=== PATIENT | female | born 1930 | race Caucasian/White ===

== ENCOUNTER 2019-11-25 18:43 | Observation (INO) ==
[2019-11-25 19:40] LABS: ABS Basophils 0.1 10^3/ul (0-0.2); ABS Eosinophils 0.1 10^3/ul (0-0.6); ABS Lymphocytes 1.1 10^3/ul (1.0-4.8); ABS Monocytes 1.1 10^3/ul (0-0.8); ABS Neutrophils 9.9 10^3/ul (1.5-7.7); Eosinophil % 0.8 %; Hematocrit 44 % (35-47); Hemoglobin 14.9 g/dL (12.0-16.0); Lymphocyte % 8.8 %; Mean Corpuscular HGB Conc 34 g/dL (31-36); Mean Corpuscular Hemoglobin 31 pg (27-31); Mean Corpuscular Volume 91 fL (80-97); Mean Platelet Volume 10.2 fL (7.4-10.4); Platelet Count 143 10^3/uL (150-450); Red Blood Count 4.86 10^6 /uL (3.70-4.87); Red Cell Distribution Width 14 % (10-15); White Blood Count 12.3 10^3/uL (3.5-10.8)
[2019-11-25 19:58] LABS: Albumin 4.3 g/dL (3.2-5.2); Albumin/Globulin Ratio 1.7 (1-3); BUN/Creatinine Ratio 14.2 (8-20); Calcium 9.6 mg/dL (8.6-10.3); EGFR African American 38.3 (>60); EGFR Non-African American 31.6 (>60); Globulin 2.6 g/dL (2-4); Magnesium 2.3 mg/dL (1.9-2.7); Potassium 4.2 mmol/L (3.5-5.0); Total Bilirubin 0.5 mg/dL (0.2-1.0); Total Protein 6.9 g/dL (6.4-8.9)
[2019-11-25] MEDS ORDERED: NS 0.9% 1000 ml BAG 2,040 ML IV ONE (21:00)
[2019-11-25] MEDS: Heparin 5000 UNITS/ML 1 mL VIAL SUBCUT SCH (23:17)
[2019-11-26 01:35] LABS: Urine Appearance Clear; Urine Bilirubin Negative (Negative); Urine Blood Negative (Negative); Urine Color Colorless; Urine Glucose Negative (Negative); Urine Ketones Negative (Negative); Urine Nitrite Negative (Negative); Urine Protein Negative (Negative); Urine Specific Gravity 1.003 (1.010-1.030); Urine Urobilinogen Negative (Negative)
[2019-11-26 05:43] LABS: Calcium 8.9 mg/dL (8.6-10.3); Potassium 3.8 mmol/L (3.5-5.0)
[2019-11-26 05:49] LABS: BUN/Creatinine Ratio 16.3 (8-20); EGFR Non-African American 53.7 (>60)
[2019-11-26] MEDS: Heparin 5000 UNITS/ML 1 mL VIAL SUBCUT SCH ×2 (06:05→13:14)
[2019-11-26] MEDS ORDERED: GALANTAMINE HBR 8 MG PO SCH (09:00)
[2019-11-26] MEDS ORDERED: CMC: Pravastatin 20 mg TAB (NF) PO SCH (09:00)
[2019-11-26 10:10] LABS: C Reactive Protein 23.73 mg/L (<8.01)
[2019-11-26 12:05] VITALS: BP 130/54
== END 2019-11-26 15:50 | disposition home or self-care (01) ==
LOC: MEDTELE 18:43 → ED 18:43 → MEDTELE 23:08
PROVIDERS: ADMIT Hospitalist; ATTEND Internal Medicine

== ENCOUNTER 2021-01-26 15:55 | Observation (INO) ==
[2021-01-26] MEDS ORDERED: Lactated Ringers 1000 ml BAG 1,000 ML IV ONE (17:15)
[2021-01-26 18:15] LABS: ABS Basophils 0.1 10^3/ul (0-0.2); ABS Eosinophils 0.1 10^3/ul (0-0.6); ABS Lymphocytes 1.3 10^3/ul (1.0-4.8); ABS Monocytes 0.8 10^3/ul (0-0.8); ABS Neutrophils 5.2 10^3/ul (1.5-7.7); Hematocrit 46 % (35-47); Hemoglobin 15.7 g/dL (12.0-16.0); Lymphocyte % 17.7 %; Mean Corpuscular HGB Conc 34 g/dL (31-36); Mean Corpuscular Hemoglobin 31 pg (27-31); Mean Corpuscular Volume 92 fL (80-97); Mean Platelet Volume 10.5 fL (7.4-10.4); Nucleated Red Blood Cells % 0.1; Platelet Count 155 10^3/uL (150-450); Red Blood Count 4.99 10^6 /uL (3.70-4.87); Red Cell Distribution Width 14 % (10-15); White Blood Count 7.4 10^3/uL (3.5-10.8)
[2021-01-26 18:25] LABS: Troponin I 0.01 ng/mL (<0.03)
[2021-01-26 18:42] LABS: Albumin 4.1 g/dL (3.2-5.2); Albumin/Globulin Ratio 1.5 (1-3); Calcium 9.6 mg/dL (8.6-10.3); Globulin 2.7 g/dL (2-4); Magnesium 2.3 mg/dL (1.9-2.7); Potassium 3.9 mmol/L (3.5-5.0); Total Bilirubin 0.5 mg/dL (0.2-1.0); Total Protein 6.8 g/dL (6.4-8.9)
[2021-01-26 19:13] LABS: Urine Appearance Clear; Urine Bilirubin Negative (Negative); Urine Blood Negative (Negative); Urine Color Straw; Urine Glucose Negative (Negative); Urine Ketones Negative (Negative); Urine Nitrite Negative (Negative); Urine Protein Negative (Negative); Urine Specific Gravity 1.005 (1.002-1.030); Urine Urobilinogen Negative (Negative)
[2021-01-26] MEDS ORDERED: Ondansetron 4 mg VIAL 2 MG/ML 2 ml VIAL IV PRN (22:10)
[2021-01-26 23:02] LABS: Rapid COVID-19 Molecular Undetected (Undetected)
[2021-01-27] MEDS: Nystatin TOP POWDER 15 GM BTL TOPICAL SCH ×3 (08:26→13:21)
[2021-01-27] MEDS ORDERED: GALANTAMINE HBR 8 MG PO SCH (09:00)
[2021-01-27] MEDS ORDERED: NISOLDIPINE 8.5 MG PO SCH (09:00)
[2021-01-27] MEDS ORDERED: CMCS:Pravastatin 20 mg TAB (NF) PO SCH (09:00)
[2021-01-27 10:26] LABS: Calcium 9.3 mg/dL (8.6-10.3); Potassium 3.7 mmol/L (3.5-5.0)
[2021-01-27] MEDS ORDERED: NS 0.9% 500 ml BAG 500 ML IV SCH (12:00)
[2021-01-27 16:02] VITALS: BP 126/81
== END 2021-01-27 18:15 | disposition home or self-care (01) ==
LOC: ED 15:55 → MEDTELE 15:55 → SUATTDRO 23:34 → MEDTELE 01-27 00:55
PROVIDERS: ADMIT Internal Medicine; ATTEND Hospitalist

== ENCOUNTER 2021-02-02 10:41 | Inpatient (IN) ==
[2021-02-02] MEDS ORDERED: Lactated Ringers 1000 ml BAG 1,000 ML IV ONE ×2 (13:15→14:11)
[2021-02-02] MEDS ORDERED: Ondansetron 4 mg VIAL 2 MG/ML 2 ml VIAL IV ONE ×2 (13:15→13:53)
[2021-02-02 13:57] LABS: ABS Basophils 0.1 10^3/ul (0-0.2); ABS Lymphocytes 2.3 10^3/ul (1.0-4.8); ABS Monocytes 0.8 10^3/ul (0-0.8); ABS Neutrophils 9.3 10^3/ul (1.5-7.7); Eosinophil % 0.1 %; Hematocrit 48 % (35-47); Hemoglobin 16.3 g/dL (12.0-16.0); Lymphocyte % 18.5 %; Mean Corpuscular HGB Conc 34 g/dL (31-36); Mean Corpuscular Hemoglobin 31 pg (27-31); Mean Corpuscular Volume 93 fL (80-97); Mean Platelet Volume 10.5 fL (7.4-10.4); Nucleated Red Blood Cells % 0.1; Platelet Count 175 10^3/uL (150-450); Red Blood Count 5.21 10^6 /uL (3.70-4.87); Red Cell Distribution Width 13 % (10-15); White Blood Count 12.6 10^3/uL (3.5-10.8)
[2021-02-02 14:09] LABS: Rapid COVID-19 Molecular Undetected (Undetected)
[2021-02-02 14:13] LABS: Albumin 4.4 g/dL (3.2-5.2); Albumin/Globulin Ratio 1.6 (1-3); C Reactive Protein 3.93 mg/L (<8.01); Calcium 9.9 mg/dL (8.6-10.3); Globulin 2.8 g/dL (2-4); Magnesium 2.3 mg/dL (1.9-2.7); Potassium 3.9 mmol/L (3.5-5.0); Total Bilirubin 0.6 mg/dL (0.2-1.0); Total Protein 7.2 g/dL (6.4-8.9)
[2021-02-02 14:14] LABS: Troponin I 0.01 ng/mL (<0.03)
[2021-02-02] MEDS ORDERED: Iodixanol (CONTRAST) 320 MG/ML 100 ML SDV IV ONE (14:23)
[2021-02-02 14:59] LABS: Ferritin 291.5 ng/mL (11-307)
[2021-02-02] MEDS ORDERED: Famotidine IV 10 MG/ML 2 ml VIAL (20 mg) IV SLOW PU ONE (16:27)
[2021-02-02] MEDS ORDERED: Ondansetron ODT 4 mg TAB 4 MG TAB PO ONE (19:19)
[2021-02-02] MEDS ORDERED: Ondansetron 4 mg VIAL 2 MG/ML 2 ml VIAL IV PRN ×2 (22:34→23:43)
[2021-02-02] MEDS ORDERED: Pantoprazole VIAL 40 MG VIAL IV SCH (23:00)
[2021-02-03 06:42] LABS: ABS Basophils 0.1 10^3/ul (0-0.2); ABS Eosinophils 0.1 10^3/ul (0-0.6); ABS Lymphocytes 2.7 10^3/ul (1.0-4.8); ABS Monocytes 1.2 10^3/ul (0-0.8); ABS Neutrophils 6.7 10^3/ul (1.5-7.7); Eosinophil % 0.9 %; Hematocrit 39 % (35-47); Hemoglobin 13.1 g/dL (12.0-16.0); Lymphocyte % 24.8 %; Mean Corpuscular HGB Conc 34 g/dL (31-36); Mean Corpuscular Hemoglobin 31 pg (27-31); Mean Corpuscular Volume 92 fL (80-97); Mean Platelet Volume 10.7 fL (7.4-10.4); Platelet Count 138 10^3/uL (150-450); Red Blood Count 4.21 10^6 /uL (3.70-4.87); Red Cell Distribution Width 14 % (10-15); White Blood Count 10.8 10^3/uL (3.5-10.8)
[2021-02-03] MEDS ORDERED: NISOLDIPINE 8.5 MG PO SCH ×2 (09:00→16:00)
[2021-02-03] MEDS ORDERED: GALANTAMINE HBR 8 MG PO SCH ×2 (09:00→16:00)
[2021-02-03] MEDS: Pantoprazole VIAL 40 MG VIAL IV SCH (09:45)
[2021-02-03 14:04] LABS: Urine Appearance Clear; Urine Bilirubin Negative (Negative); Urine Blood Negative (Negative); Urine Color Yellow; Urine Glucose Negative (Negative); Urine Ketones Negative (Negative); Urine Nitrite Negative (Negative); Urine Protein Negative (Negative); Urine Specific Gravity 1.024 (1.002-1.030); Urine Urobilinogen Negative (Negative)
[2021-02-03 14:30] LABS: Urine Creatinine Concentration 75.08 mg/dL
[2021-02-03] MEDS: NISOLDIPINE 8.5 MG PO SCH (16:06)
[2021-02-03] MEDS: GALANTAMINE HBR 8 MG PO SCH (16:07)
[2021-02-03] MEDS ORDERED: Metoprolol Tartrate 5 mg VIAL 5 ml VIAL (1 mg/ml) IV ONE (19:33)
[2021-02-03] MEDS ORDERED: Metoprolol Tartrate 5 mg VIAL 5 ml VIAL (1 mg/ml) ONE (19:37)
[2021-02-04 07:48] LABS: ABS Basophils 0.1 10^3/ul (0-0.2); ABS Eosinophils 0.2 10^3/ul (0-0.6); Eosinophil % 2.4 %; Hematocrit 40 % (35-47); Hemoglobin 13.4 g/dL (12.0-16.0); Lymphocyte % 21.4 %; Mean Corpuscular HGB Conc 33 g/dL (31-36); Mean Corpuscular Hemoglobin 31 pg (27-31); Mean Corpuscular Volume 93 fL (80-97); Mean Platelet Volume 10.2 fL (7.4-10.4); Platelet Count 137 10^3/uL (150-450); Red Blood Count 4.35 10^6 /uL (3.70-4.87); Red Cell Distribution Width 14 % (10-15); White Blood Count 9.4 10^3/uL (3.5-10.8)
[2021-02-04 08:07] LABS: Calcium 8.9 mg/dL (8.6-10.3)
[2021-02-04] MEDS: Pantoprazole VIAL 40 MG VIAL IV SCH (09:55)
[2021-02-04] MEDS: NISOLDIPINE 8.5 MG PO SCH (10:37)
[2021-02-04] MEDS: GALANTAMINE HBR 8 MG PO SCH (10:38)
[2021-02-05] MEDS: Pantoprazole VIAL 40 MG VIAL IV SCH (09:06)
[2021-02-05] MEDS: NISOLDIPINE 8.5 MG PO SCH (09:06)
[2021-02-05] MEDS: GALANTAMINE HBR 8 MG PO SCH (09:06)
[2021-02-05] MEDS ORDERED: NS 0.9% 500 ml BAG 500 ML IV SCH (11:00)
[2021-02-05] MEDS ORDERED: Perflutren Lipid Microsphere 3 ML VIAL ONE (11:55)
[2021-02-05 13:29] VITALS: BP 123/60
== END 2021-02-05 14:05 | disposition home or self-care (01) | DRG 392 ==
LOC: EDHOLD 10:41 → ED 10:41 → SUATTDRO 22:37 → SSU 02-03 21:13
PROVIDERS: ADMIT Internal Medicine; ATTEND Hospitalist